=== PATIENT | male | born 1995 | race Caucasian/White ===

== ENCOUNTER 2018-08-04 17:51 | Emergency (ER) | payer OTHER ==
[2018-08-04 18:22] VITALS: RESP 18; TEMP 98.3
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
[2018-08-04 20:14] VITALS: BP 137/74; PULSE 71; O2SAT 100
--- NOTE | 2018-08-05 08:28 | RAD ---
Date of service: 08/04/2018 PROCEDURE: Right Wrist Radiographs. HISTORY: wrist injury COMPARISON: None. FINDINGS: BONES: Normal. No fracture. JOINTS: Normal. No dislocation. SOFT TISSUES: Normal. OTHER FINDINGS: None. IMPRESSION: Normal right wrist radiographs.
== END 2018-08-04 20:05 | disposition home or self-care (01) ==
LOC: ED 17:51
DX: M25.531 Pain in right wrist (principal); S63.501A Unspecified sprain of right wrist, initial encounter; V59.59XA Passenger in pick-up truck or van injured in collision with other motor vehicles in traffic accident, initial encounter; Y92.410 Unspecified street and highway as the place of occurrence of the external cause
CPT/HCPCS: 73110; 96372; 99284; J1885